=== PATIENT | female | born 1970 | race Caucasian/White ===

== ENCOUNTER → 2017-11-11 | Outpatient (CLI) | payer OTHER | LOC: M.ULTRA 10:46 | DX: N63.31 Unspecified lump in axillary tail of the right breast (principal); N63.32 Unspecified lump in axillary tail of the left breast; Z15.01 Genetic susceptibility to malignant neoplasm of breast; Z80.3 Family history of malignant neoplasm of breast ==

== ENCOUNTER → 2018-06-18 | Outpatient (CLI) | payer OTHER | LOC: M.RAD 10:08 | DX: Z12.31 Encounter for screening mammogram for malignant neoplasm of breast (principal) ==

== ENCOUNTER → 2019-02-26 | Outpatient (CLI) | payer OTHER | LOC: M.ULTRA 12:55 | DX: R92.8 Other abnormal and inconclusive findings on diagnostic imaging of breast (principal) ==

== ENCOUNTER → 2019-03-05 | Outpatient (CLI) | payer OTHER | LOC: M.RAD 14:55 | DX: R92.2 Inconclusive mammogram (principal) ==

== ENCOUNTER → 2019-03-17 | Outpatient (CLI) | payer OTHER | LOC: M.MRI 16:17 | DX: Z15.01 Genetic susceptibility to malignant neoplasm of breast (principal) ==

== ENCOUNTER → 2020-09-15 | Outpatient (CLI) | payer OTHER | LOC: M.RAD 10:45 | PROVIDERS: ATTEND Surgery | DX: Z12.31 Encounter for screening mammogram for malignant neoplasm of breast (principal) ==